=== PATIENT | female | born 1980 | race Two or more races ===

== ENCOUNTER 2023-09-11 08:50 | Day surgery (SDC) | payer BC, MEDICAID ==
[~2023-09-11] VITALS: Ht 160 cm; Wt 87.7 kg
[2023-09-11 09:20] VITALS: BP 120/80; PULSE 93; RESP 16; TEMP 98.7; O2SAT 99
[2023-09-11] MEDS ORDERED: METF-438 PO (09:31)
[2023-09-11] MEDS ORDERED: NITR100C11 PO (09:31)
[2023-09-11] MEDS ORDERED: SUMA50TA17 PO (09:31)
[2023-09-11] MEDS ORDERED: CHOL500049 PO (09:31)
[2023-09-11] MEDS ORDERED: HYDR-3686 PO (09:31)
[2023-09-11] MEDS ORDERED: PANT40TA54 PO (09:31)
[2023-09-11] MEDS ORDERED: ASPI-1475 PO (09:31)
[2023-09-11 10:14] LABS: BILIRUBIN,URINE NEGATIVE (Neg); CLARITY,URINE SLIGHTLY CLOUDY (Clear); COLOR,URINE YELLOW (Yellow); GLUCOSE, URINE NEGATIVE (Neg); KETONES,URINE NEGATIVE (Neg); LEUKOCYTE ESTERASE ,URINE NEGATIVE (Neg); NITRITES, URINE NEGATIVE (Neg); OCCULT BLOOD,URINE NEGATIVE (Neg); PROTEIN,URINE NEGATIVE (Neg); URINE HCG POSITIVE (NEG); UROBILINOGEN,URINE 0.2 E.U/dL (0.2-1.0)
[2023-09-11 10:22] LABS: UA COLLECTION TYPE NON-SPECIFIED
[2023-09-11 10:30] LABS: BACTERIA,URINE FEW /HPF (Neg); MUCUS STRANDS FEW /LPF (Neg); RBC,URINE 0-2 /HPF (0-2); SQUAMOUS EPITHELIAL CELL,UR MANY /LPF (FEW); TRANSITIONAL EPI CELLS,URINE FEW /HPF; WBC,URINE 0-4 /HPF (0-4)
== END 2023-09-11 12:45 | disposition home or self-care (01) ==
LOC: SSTAY O 08:50
PROVIDERS: ATTEND Psychiatry & Neurology Neurology
DX: R20.2 Paresthesia of skin (principal); Z53.8 Procedure and treatment not carried out for other reasons; K21.9 Gastro-esophageal reflux disease without esophagitis; E11.9 Type 2 diabetes mellitus without complications; F41.9 Anxiety disorder, unspecified; F32.A Depression, unspecified; G47.30 Sleep apnea, unspecified; Z79.899 Other long term (current) drug therapy; Z87.440 Personal history of urinary (tract) infections; Z98.890 Other specified postprocedural states; R10.2 Pelvic and perineal pain
CPT/HCPCS: 36415; 81001; 81025; 84702; A4615